=== PATIENT | female | born 1945 | race Caucasian/White ===

== ENCOUNTER 2021-08-10 13:26 | Emergency (ER) | payer MEDICARE, SELFPAY ==
[2021-08-10 15:21] VITALS: BP 180/90; PULSE 94; RESP 19; TEMP 36.1; O2SAT 98; BMI 23.8
[2021-08-10 15:36] VITALS: BP 156/97; PULSE 83; RESP 16; TEMP 37.1; O2SAT 98
--- NOTE | 2021-08-10 16:25 | ED_ITS ---
HPI - Eye Problem General Chief complaint: Eye Problems Stated complaint: Eye pain Time Seen by Provider: 08/10/21 15:33 Source: patient Mode of arrival: ambulatory Limitations: no limitations History of Present Illness HPI Narrative: 86-year-old female wear contacts presents to ED for left eye pain, redness, and slight discharge. Patient denies any recent trauma to the eye or sleeping with contacts. Patient states last night while sleeping she did rub her left eye and might have rubbed to hard. Patient denies any headache, change in vision, nausea, vomiting, loss of vision, facial droop, slurred streaks, or paralysis of extremities. Related Data Previous Rx's Medication Instructions Recorded naproxen 375 mg tablet,delayed 375 mg PO BID PRN 10 Days #20 tab 08/10/21 release ofloxacin 0.3 % eye drops See Rx Instructions .ROUTE 08/10/21 .COMPLEX #30 ml Allergies Allergy/AdvReac Type Severity Reaction Status Date / Time No Known Allergies Allergy Verified 08/10/21 15:31 Review of Systems Review of Systems: Left eye pain Yes all other systems are reviewed and are negative Constitutional: Constitutional: Reports as per HPI and Reports no additional constitutional complaints [facility] Past Medical History Medical History (Updated 08/10/21 @ 16:41 by DANIELA Arshad) HTN (hypertension) Social History Social History Advance Directives: No Advance Directives Information Provided: No Physical Exam Vital Signs: Vital Signs: Last Vital Signs Temp 98.7 F 08/10/21 15:36 Pulse 83 08/10/21 15:36 Resp 16 08/10/21 15:36 BP 156/97 H 08/10/21 15:36 Pulse Ox 98 08/10/21 15:36 BMI result Body Mass Index 23.8 Const: General: cooperative, healthy appearing, comfortable, no acute distress, well developed, alert, awake and Physically active Orientation/consciousness: patient oriented x3 HEENT: Head: Yes normal to inspection, Yes No palpable skull fracture present, Yes normocephalic, Yes atraumatic and No abrasion Eyes: Other: Left eye: Positive for rednes of conjunctiva and sclera and watery discharge. Negative for any foreign body. Tonometry pressure is 18. With fluorescein dye and Wood's lamp positive for corneal abrasion. Visual acuity 20/20 Right eye; normal. Negative for any foreign body. Tonometry eye pressure is 18. Negative corneal abrasion with fluorescein dye and Wood's lamp. Visual acuity 20/20 General: appearance normal, both eyes and all related structures Neck: Neck: Yes normal visual inspection, Yes full ROM, Yes no lymphadenopathy, Yes no meningeal signs, Yes trachea midline, Yes supple, No anterior neck swelling and No tender Chest: Chest palpation & inspection: normal inspection of the chest and normal palpation of entire chest wall Resp: Effort & Inspection: normal respiratory effort and able to speak in complete sentences Cardio: Jugular venous distension: no JVD Heart sounds: S1 normal heart sound present and S2 normal heart sound present GI: Inspection: Yes normal to inspection and No abdominal wall ecchymosis Palpation (GI): Soft to palpation, not firm, nontender, no guarding and not rigid : General: No CVA tenderness and Yes no CVA tenderness Back/Spine/Pelvis: Back: no CVA tenderness, No CVA tenderness and No back tenderness Skin: General skin exam: no rashes or lesions noted and elasticity normal Neuro: General: patient oriented x3, gait normal, tone normal, no meningeal signs and CN's II-XI intact bilaterally Cranial nerves: Yes CN's II-XII intact bilaterally Extrem: General: Yes normal to inspection and Yes full ROM Psych: Appearance: grossly normal, well kempt and not disheveled Course Course Course Narrative: Eye exam done. Reevaluation(s) Reevaluation #1: History physical exam indicates left eye corneal abrasion. History physical exam does not indicate glaucoma. Neuro exam intact. Negative for signs of stroke. No need for head CT scan. Not suspecting temporal arthritis. Patient will follow-up with her eye doctor. Patient uptodate with tetanus Time: 16:38 MDM - Eye Problem MDM Narrative Medical decision making narrative: Corneal abrasion Discharge Plan Discharge Clinical Impression: Corneal abrasion Patient Disposition: Home, Self-Care Instructions: Corneal Abrasion (ED) Additional Instructions: Your eye exam showed he had a corneal abrasion. You will be discharged with antibiotics and pain medications. Return to ED for any worsening eye pain, loss of vision, change in vision, worsening eye discharge, headache, dizziness, fever, chills, or any other concerning symptoms. Please follow-up with you eye doctor Prescriptions: New ofloxacin 0.3 % drops See Rx Instructions .ROUTE .COMPLEX Qty: 30 0RF Rx Instructions: put 1-2 drps into affected eye(s) every 2-4 h x 2 days, then 1-2 drps 4 times /day days 3-7 naproxen 375 mg tablet,delayed release (DR/EC) 375 mg PO BID PRN (Reason: pain) 10 Days Qty: 20 0RF Interventions: ED Discharge Assessment Last Done: 08/10/21 17:02 Discharge Date/Time: 08/10/21 17:04 Print Language: Sinhala
[2021-08-10] MEDS: Fluorescein Sodium STRIP 1 STRIP EYE-RIGHT (16:42)
[2021-08-10] MEDS: Fluorescein Sodium STRIP 1 STRIP EYE-LEFT (16:43)
[2021-08-10] MEDS: Tetracaine HCl/PF 0.5% Oph Sol 4 ML DROPS 3 DROP EYE-LEFT (16:46)
== END 2021-08-10 17:04 | disposition home or self-care (01) ==
PROVIDERS: Emergency Provider Emergency Medicine; PCP Internal Medicine
DX: S05.02XA Injury of conjunctiva and corneal abrasion without foreign body, left eye, initial encounter (principal); Y28.9XXA Contact with unspecified sharp object, undetermined intent, initial encounter; Y93.9 Activity, unspecified; Y92.9 Unspecified place or not applicable; Y99.9 Unspecified external cause status; Z79.899 Other long term (current) drug therapy
CPT/HCPCS: 99283; 99284

== ENCOUNTER 2023-07-06 15:36 | Outpatient (REF) | payer MEDICARE, SELFPAY ==
--- NOTE | ~2023-07-06 | CT_ITS ---
EXAMINATION: CT ABDOMEN AND PELVIS WITHOUT CONTRAST CLINICAL INFORMATION: Calculus of kidney. COMPARISON: None available. TECHNIQUE: Multidetector volumetric imaging was performed from the superior aspect of the liver through the pubic symphysis. Sagittal and coronal reformatted images were obtained on the technologist's workstation. This CT examination was performed using dose optimization techniques as appropriate, variously including the following: *Automated exposure control *Adjustment of mA and/or kV according to patient size (this includes techniques or standardized protocols for targeted exams where dose is matched to indication/reason for exam; i.e. extremities or head) *Use of iterative reconstruction technique DLP: 296 mGy-cm FINDINGS: LUNG BASES: Emphysematous changes are seen at the lung bases along with some scarring. LIVER, GALLBLADDER, AND BILIARY TREE: The liver is normal in size, shape, and attenuation. No focal hepatic lesion or biliary ductal dilatation is present. The gallbladder is unremarkable with no evidence of radiopaque gallstones, gallbladder wall thickening, or obvious pericholecystic inflammatory changes. PANCREAS: Unremarkable. SPLEEN: Unremarkable. ADRENAL GLANDS: Unremarkable. KIDNEYS AND URETERS: The kidneys are normal in size, shape, and attenuation. No hydronephrosis, hydroureter, or calculi seen. No perinephric stranding. BLADDER: Empty but unremarkable. GASTROINTESTINAL TRACT: The gastric fundus appears thickened, probably secondary to underdistention. The small and large bowel are unremarkable aside from the presence of colonic diverticula without diverticulitis. The appendix is unremarkable. ABDOMINAL WALL: No significant hernia is appreciated. LYMPH NODES: No retroperitoneal lymphadenopathy. VASCULAR: Calcific atherosclerotic changes are present in the aorta and iliofemoral vessels. There is no evidence of an abdominal aortic aneurysm. PELVIC VISCERA: Unremarkable. OSSEOUS STRUCTURES: There is a biconvex thoracolumbar scoliosis and degenerative change is seen throughout the spine. The most marked disc space narrowing is at L1-L2. There is mild grade 1 anterolisthesis of L5 upon S1. No bony destructive lesions. CT/CT abdomen pelvis wo IV con IMPRESSION: 1. No evidence of nephrolithiasis. 2. Incidental note made of emphysema, colonic diverticulosis without diverticulitis and degenerative changes in the spine. Fleischner guidelines were followed.
== END 2023-07-06 15:37 | disposition home or self-care (01) ==
LOC: HO.CT 15:36
PROVIDERS: PCP Physician Assistant; Visit Provider Urology
DX: N20.0 Calculus of kidney (principal)
CPT/HCPCS: 74176

== ENCOUNTER 2024-08-14 08:55 | Outpatient (REF) | payer MEDICARE, SELFPAY ==
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
[2024-08-14 11:23] LABS: MANUAL DIFF FLAG NO
[2024-08-14 11:32] LABS: Basophils Absolute Auto 0.1 X10*3/uL (0.0-0.2); Basophils Percent Auto 1.1 % (0-2); Eosinophils Absolute Auto 0.1 X10*3/uL (0.0-0.4); Eosinophils Percent Auto 1.5 % (0-4); Hematocrit 36.3 % (37.0-47.0); Hemoglobin 11.9 g/dl (12.0-16.0); Lymphocytes Absolute Auto 2.3 X10*3/uL (1.2-4.9); Lymphocytes Percent Auto 49.5 % (20-40); Mean Corpuscular HGB Conc 32.8 g/dl (31.0-35.0); Mean Corpuscular Hemoglobin 31.6 pg (27.0-33.0); Mean Corpuscular Volume 96.3 fL (80.0-98.0); Mean Platelet Volume 8.8 fL (9.4-12.3); Monocytes Absolute Auto 0.4 X10*3/uL (0.1-1.2); Monocytes Percent Auto 9.3 % (2-11); Neutrophils Absolute Auto 1.8 x10*3/uL (2.0-8.3); Neutrophils Percent Auto 38.6 % (45-73); Platelet Count 263 X10*3/uL (160-400); Red Blood Count 3.77 X10*6/uL (4.20-5.50); Red Cell Distribution Width 13.8 % (11.0-16.0); White Blood Count 4.7 X10*3/uL (4.8-10.8)
[2024-08-14 12:16] LABS: Folate 16.4 ng/mL (> or = 4.0); Vitamin B12 259 pg/mL (200-900)
[2024-08-14 12:23] LABS: Anion Gap 10 (12-20); Blood Urea Nitrogen 22 mg/dL (9-16); Calcium 9.1 mg/dL (8.4-10.2); Carbon Dioxide 29 mmol/L (22-29); Chloride 105 mmol/L (96-108); Estimated Glomerular Filt Rate > 60; Glucose Random 87 mg/dL (60-115); Potassium 4.3 mmol/L (3.3-5.1); Sodium 140 mmol/L (135-145); TSH reflex Free T4 1.18 uIU/mL (0.32-4.0); Vitamin D 25-OH Total 61.6 ng/mL (>30)
== END 2024-08-14 08:56 | disposition home or self-care (01) ==
LOC: HO.HHCL 08:55
PROVIDERS: Visit Provider Internal Medicine
DX: I10 Essential (primary) hypertension (principal); M17.31 Unilateral post-traumatic osteoarthritis, right knee; M15.4 Erosive (osteo)arthritis
CPT/HCPCS: 36415; 80048; 82306; 82607; 82746; 84443; 85025

== ENCOUNTER 2024-08-15 11:05 | Outpatient (REF) | payer MEDICARE, SELFPAY ==
--- OUTSIDE RECORDS SUMMARY | 2024-08-15 12:10 | XMS_ITS | Encounter Summary ---
Author Organization [employer] Address [address] [place] [address] Care Team Providers Care Higher Education Administrator Name Role Phone Page Gudino MD Primary Care Provider + Encounter Details Date Type Department Care Team ([facility] Contact Info) Description 08/14/2024 Orders Only [facility] [address] [place] [address] Page Gudino MD [address] [place] [phone] Anemia, unspecified type (Primary Dx) Social History Tobacco Use Types Packs/Day Years [...] Don't know 04/04/2024 8: 18 AM EST documented as of this encounter Plan of Treatment Upcoming Encounters Date Type Department Care Team (Late st Contact Info) Description 09/15/2024 9:45 AM EDT Office Visit [facility] [address] [place] [phone] Page Gudino MD [address] [place] [address] Scheduled Orders Name Type Priority Associated Diagnoses Orde r Schedule Ferritin Lab Routine Anemia, unspecified type Expected: 08/14/2024, Expires: 08/14/2025 Transferrin Lab Routine Anemia, unspecified type Expected: 08/14/2024 (Approximate), Expires: 08/14/2025 CBC auto differential Lab Routine Anemia, unspecified type Expected: 08/14/2024 (Approximate), Expires: 08/14/2025 Reticulocyte Count Lab Routine Anemia, unspecified type Expected: 08/14/2024, Expires: 08/14/2025 Occult Blood Screen X 3 Lab Routine Anemia, unspecified type Expected: 08/14/2024 (Approximate), Expires: 08/14/2025 Iron And Total Iron Binding Capacity Lab Routine Anemia, unspecified type Expected: 08/14/2024, Expires: 08/14/2025 documented as of this encounter Visit Diagnoses Diagnosis Anemia, unspecified type- Primary documented in this encounter Care Teams Higher Education Administrator Relationship Specialty Start Date End Date Page Gudino MD [address] [place] [id number] PCP - General Internal Medicine 07/31/24 documented as of this encounter
--- OUTSIDE RECORDS SUMMARY | 2024-08-15 12:10 | XMS_ITS | Clinical Summary ---
Author Organization [employer] Address [address] [facility] 7t [place] [address] Care Team Providers Care Heavy Equipment Plumbing Supervisor Name Role Phone Page Gudino MD Primary [...] Encounters Date Type Department Care Team Description 08/14/2024 Telephone [facility] [address] [place] [address] Page Gudino MD Results 08/14/2024 Orders Only [facility] [address] [place] [address] Page Gudino MD Anemia, unspecified type (Primary Dx) 07/31/2024 9:15 AM EDT Office Visit [address] [place] [phone] Page Gudino MD Erosive osteoarthritis of both hands (Primary Dx); Primary hypertension; Tremor of both hands; Post-traumatic osteoarthritis of right knee; Screening mammogram, encounter for; At high risk for osteoporosis 07/31/[address] [address] Page Gudino MD insurance 07/31/2024 Travel 07/29/[address] [address] Maye Hollis [place] Chart prep 07/22/2024 Patient Outreach [address] [phone] Page Gudino MD Pre-visit Planning ((Unable to [...] Description 09/15/2024 9:45 AM EDT Office Visit [facility] [address] [place] [address] Page Gudino MD [address] [place] [address] Health Maintenance Due Date Last Done Comments [...] on patient's age to complete this topic Procedures Procedure Name Priority Date/Time Associated Diagnosis Comments VITAMIN B12/FOLATE, SERUM PANEL Routine 08/14/2024 8:58 AM EDT Erosive osteoarthritis of both hands BASIC METABOLIC PANEL Routine 08/14/2024 8:58 AM EDT Primary hypertension CBC WITH AUTO DIFFERENTIAL Routine 08/14/2024 8:58 AM EDT Erosive osteoarthritis of both hands TSH W/REFLEX TO FT4 Routine 08/14/2024 8 :58 AM EDT Post-traumatic osteoarthritis of right knee VITAMIN D,25-OH,TOTAL,IA Routine 08/14/2024 8:58 AM EDT Erosive osteoarthritis of both hands from Last 3 Months Results * Vitamin D, 25-Hydroxy, Total, Immunoassay (08/14/2024 8:58 AM EDT) Vitamin D 25-OH Total 61.6 >30 ng/mL [facility] Comment: Health Based Reference Values*< 20 ??ng/mL ??Lxvvfmjaf80-59 ng/mL ??Insufficient> 30 ??ng/mL ??Sufficient*Lenny REYEZ. N Engl J Med. 2007;357:266-280There is no well-established upper level of normal vitamin Dlevels. Some laboratories use 50 ng/mL as an upper limit ofnormal. However, toxicity is patient-dependent and may occurat any level. Careful correlation with the patient'spresentation is necessary and, if there is concern forvitamin D toxicity, treatment should be consideredirrespective of the serum level.Care must be taken in interpreting Vitamin D results fromdifferent laboratories and methodologies. ??Published datademonstrated that results from patients undergoinghemodialysis may show a negative bias when tested withvarious automated 25-OH vitamin D assays when compared toLC- MS/MS.When testing samples from patients whose predominant form ofVitamin D is Vitamin D2, such as patients receiving VitaminD2 supplementation, results that are subtherapeutic shouldbe confirmed with another method such as LC-MS/MS. Blood 08/14/2024 8:58 AM EDT 08/14/2024 11:19 AM EDT us Page Gudino MD LAB BLOOD ORDERABLES Fin al Result [facility] [address] [place] [phone] * Vitamin B12/Folate, Serum Panel (08/14/2024 8:58 AM EDT) Vitamin B12 259 200 - 900 pg/mL [facility] Comment:NORMAL 200-900 PG/ML INDETERMINATE 160-199 PG/ML DEFICIENT < 160 PG/ML Folate 16.4 > or = 4.0 ng/mL [facility] Comment:Reference Values:> o r = 4.0 ng/mL< 4.0 ng/mL suggests folate deficiency Methotrexate, aminopterin and folinic acid(leucovorin) are chemotherapeutic agents whose molecularstructures are similar to folate; therefore, the Architectfolate assay cannot be used for patients using these drugs. Blood Venous blood specimen / Unknown 08/14/2024 8:58 AM EDT 08/14/2024 11:19 AM EDT Page Gudino MD LAB BLOOD ORDERABLES Fin al Result Performing Organization Address [facility]/ZIP Co de Phone Number [facility] [address] [place] [phone] * TSH with Reflex to Free T4 (08/14/2024 8:58 AM EDT) TSH reflex Free T4 1.18 0.32 - 4.0 uIU/mL [facility] Blood 08/14/2024 8:58 AM EDT 08/14/2024 11:19 AM EDT Pgae Gudino MD LAB BLOOD ORDERABLES Fin al Result Performing Organization Address [facility] Co de Phone Number [facility] [address] [place] [phone] * (ABNORMAL) CBC auto differential (08/14/2024 8:58 AM EDT) White Blood Count 4.7(L) 4.8 - 10.8 X10*3/uL [facility] Red Blood Count 3.77(L) 4.20 - 5.50 X10*6/uL [facility] Hemoglobin 11.9(L) 12.0 - 16.0 g/dl [facility] Hematocrit 36.3(L) 37.0 - 47.0 % [facility] Mean Corpuscular Volume 96.3 80.0 - 98.0 fL [facility] Mean Corpuscular Hemoglobin 31.6 27.0 - 33.0 pg [facility] Mean Corpuscular HGB Conc 32.8 31.0 - 35.0 g/dl [facility] Red Cell Distribution Width 13.8 11.0 - 16.0 % [facility] Platelet Count 263 160 - 400 X10*3/uL [facility] Mean Platelet Volume 8.8(L) 9.4 - 12.3 fL [facility] Neutrophils Percent Auto 38.6(L) 45 - 73 % [facility] Imm Gran Pct Auto 0.0 0.0 - 0.4 % [facility] Lymphocytes Percent Auto 49.5(H) 20 - 40 % [facility] Monocytes Percent Auto 9.3 2 - 11 % [facility] Eosinophils Percent Auto 1.5 0 - 4 % [facility] Basophils Percent Auto 1.1 0 - 2 % [facility] NRBC Pct Auto 0.0 0.0 - 0.2 /100WBC [facility] Neutrophils Absolute Auto 1.8(L) 2.0 - 8.3 x10*3/uL [facility] Imm Gran Abs Auto 0.00 0.00 - 0.03 X10*3/uL [facility] Lymphocytes Absolute Auto 2.3 1.2 - 4.9 X10*3/uL [facility] Monocytes Absolute Auto 0.4 0.1 - 1.2 X10*3/uL [facility] Eosinophils Absolute Auto 0.1 0.0 - 0.4 X10*3/uL [facility] Basophils Absolute Auto 0.1 0.0 - 0.2 X10*3/uL [facility] NRBC Abs Auto 0.000 0.0 - 0.012 X10*3/uL [facility] Blood Venous blood specimen / Unknown 08/14/2024 8:58 AM EDT 08/14/2024 11:19 AM EDT us Page Gudino MD LAB BLOOD ORDERABLES Fin al Result [facility] [address] [place] [phone] * (ABNORMAL) Basic Metabolic Panel (08/14/2024 8:58 AM EDT) Sodium 140 135 - 145 mmol/L [facility] Potassium 4.3 3.3 - 5.1 mmol/L [facility] Chloride 105 96 - 108 mmol/L [facility] Carbon Dioxide 29 22 - 29 mmol/L [facility] Anion Gap 10(L) 12 - 20 [facility] Urea Nitrogen (BUN) 22(H) 9 - 16 mg/dL [facility] Creatinine, Serum 0.69 0.5 - 1.4 mg/dL [facility] Estimated Glomerular Filt Rate >60 [facility] Comment:Chronic Kidney Disea se: Estimated GFR < 60 mL/min/[id number] Kidney Disease: Estimated GFR < 15 mL/min/1.73m2 Glucose 87 60 - 115 mg/dL [facility] Calcium 9.1 8.4 - 10.2 mg/dL [facility] Blood Venous blood specimen / Unknown 08/14/2024 8:58 AM EDT 08/14/2024 11:19 AM EDT us Page Gudino MD LAB BLOOD ORDERABLES Fin al Result Performing Organization Address City/State/[facility] Co de Phone Number [facility] [address] [place] [phone] from Last 3 Months Insurance [facility] MEDICARE ADVANTAGE Care Teams Heavy Equipment Plumbing Supervisor Relationship Specialty Start Date End Date Page Gudino MD [address] [place] [phone] PCP - General Internal Medicine 07/31/24
--- OUTSIDE RECORDS SUMMARY | 2024-08-15 12:10 | XMS_ITS | Encounter Summary ---
Author Organization [employer] Address [address] [facility] 7t [place] [address] Care Team Providers Care Media Analytics Manager Name Role Phone Page Gudino MD Primary Care Provider + Reason for Visit * Reason Onset Date Comments Results 08/14/2024 Encounter Details Date Type Department Care Team ([facility] Contact Info) Description 08/14/2024 Telephone [facility] [address] [place] [address] Page Gudino MD [address] [place] [address] Results Social History Tobacco Use Types Packs/Day Years Used Date Smoking Tobacco: Never Smokeless Tobacco: Never Alcohol Use Standard Drinks/Week Comments Yes 6 (1 standard drink = 0.6 oz pur e alcohol) Housing Stability Answer Date Recorded What is your housing situation today? I have kamronjose odom 03/24/[address] you [...] t he electric, gas, oil or water [employer] threatened to shut off services in your [...] AM EST documented as of this encounter Miscellaneous Notes * Telephone Encounter - Elise Bajwa RN - 08/15/2024 10:07 AM EDT TC x2 placed to patient [phone] in regards to below message. Patient informed of below messageand advised of POC. Patient aware she will receive another call with additional BW results once available. Patient reports she has NOT had a colonoscopy in the past. Patient to f/u PRN. ----- Message from Page Gudino MD sent at 08/14/2024 2:35 PM EDT ----- Labs on 08/14/2024 showed mild normocytic anemia and leukopenia. Please call patient and tell her that I would like to do extra test to check for her anemia, it is very mild so that she does not need medications for anemia at this time. Please also ask her if she has ever had colonoscopy and I will follow-up with her at her upcoming appointment * Telephone Encounter - Elise Bajwa RN - 08/14/2024 2:52 PM EDT TC placed to patient [phone] in regards to below message. Patient did not answer, RN left requesting CB to red team nurses. TC placed to [phone] however busy tone is received. RN unable to leave . RN will re-attempt in AM. ----- Message from Page Gudino MD sent at 08/14/2024 2:35 PM EDT ----- Labs on 08/14/2024 showed mild normocytic anemia and leukopenia. Please call patient and tell her that I would like to do extra test to check for her anemia, it is very mild so that she does not need medications for anemia at this time. Please also ask her if she has ever had colonoscopy and I will follow-up with her at her upcoming appointment documented in this encounter Plan of Treatment Upcoming Encounters Date Type Department Care Team (Late st Contact Info) Description 09/15/2024 9:45 AM EDT Office Visit [facility] [address] [place] [phone] Page Gudino MD [address] [place] [phone] documented as of this encounter Visit Diagnoses Not on filedocumented in this encounter Care Teams Media Analytics Manager Relationship Specialty Start Date End Date Page Gudino MD [address] [place] [phone] PCP - General Internal Medicine 07/31/24 documented as of this encounter
== END 2024-08-15 11:06 | disposition home or self-care (01) ==
LOC: HO.MAMMO 11:05
PROVIDERS: PCP Internal Medicine; Visit Provider Internal Medicine
DX: Z12.31 Encounter for screening mammogram for malignant neoplasm of breast (principal)
CPT/HCPCS: 77063; 77067

== ENCOUNTER → 2024-08-15 11:30 | Outpatient (BNV) | payer MEDICARE, SELFPAY | PROVIDERS: PCP Internal Medicine; Visit Provider Internal Medicine | DX: Z12.31 Encounter for screening mammogram for malignant neoplasm of breast (principal) | CPT/HCPCS: 77063; 77067 ==

== ENCOUNTER 2024-08-21 09:21 | Outpatient (REF) | payer MEDICARE, SELFPAY ==
--- OUTSIDE RECORDS SUMMARY | 2024-08-21 10:15 | XMS_ITS | Clinical Summary ---
Author Organization [employer] Address [address] [facility] 7t [place] [address] Care Team Providers Care Systems Auditor Name Role Phone Page Gudino MD Primary [...] Type Department Care Team Description 08/14/2024 Telephone [facility] [address] [place] [address] Page Gudino MD Results 08/14/2024 Orders Only [facility] [address] [facility] [address] Page Gudino MD Anemia, unspecified type (Primary Dx) 07/31/2024 9:15 AM EDT Office Visit [address] [place] [phone] Page Gudino MD Erosive osteoarthritis of both hands (Primary Dx); Primary hypertension; Tremor of both hands; Post-traumatic osteoarthritis of right knee; Screening mammogram, encounter for; At high risk for osteoporosis 07/31/[address] [address] Page Gudino MD insurance 07/31/2024 Travel 07/29/[address] [address] Maye Hollis [place] Chart prep 07/22/2024 Patient Outreach [address] [phone] Page Gudino MD Pre-visit Planning ((Unable to [...] Description 09/15/2024 9:45 AM EDT Office Visit [facility] [address] [place] [address] Page Gudino MD [address] [place] [address] Health Maintenance Due Date Last Done Comments [...] Vitamin D 25-OH Total 61.6 >30 ng/mL [facility] Comment: Health Based Reference Values*< 20 ??ng/mL ??Fkdgudijl93-27 ng/mL ??Insufficient> 30 ??ng/mL ??Sufficient*Lenny REYEZ. N [...] MD LAB BLOOD ORDERABLES Fin al Result [facility] [address] [place] [phone] * Vitamin B12/Folate, Serum Panel (08/14/2024 8:58 AM EDT) Vitamin B12 259 200 - 900 pg/mL [facility] Comment:NORMAL 200-900 PG/ML INDETERMINATE 160-199 PG/ML DEFICIENT < 160 PG/ML Folate 16.4 > or = 4.0 ng/mL [facility] Comment:Reference Values:> o r = 4.0 [...] ORDERABLES Fin al Result Performing Organization Address [facility]/ZIP Co de Phone Number [facility] [address] [place] [phone] * TSH with Reflex to Free T4 (08/14/2024 8:58 AM EDT) TSH reflex Free T4 1.18 0.32 - 4.0 uIU/mL [facility] Blood 08/14/2024 8:58 AM EDT 08/14/2024 11:19 AM EDT Page Gudino MD LAB BLOOD ORDERABLES Fin al Result Performing Organization Address [facility] Co de Phone Number [facility] [address] [place] [phone] * (ABNORMAL) CBC auto differential (08/14/2024 8:58 AM EDT) White Blood Count 4.7(L) 4.8 - 10.8 X10*3/uL [facility] Red Blood Count 3.77(L) 4.20 - 5.50 X10*6/uL [facility] Hemoglobin 11.9(L) 12.0 - 16.0 g/dl [facility] Hematocrit 36.3(L) 37.0 - 47.0 % [facility] Mean Corpuscular Volume 96.3 80.0 - 98.0 fL [facility] Mean Corpuscular Hemoglobin 31.6 27.0 - 33.0 pg [facility] Mean Corpuscular HGB Conc 32.8 31.0 - 35.0 g/dl [facility] Red Cell Distribution Width 13.8 11.0 - 16.0 % [facility] Platelet Count 263 160 - 400 X10*3/uL [facility] Mean Platelet Volume 8.8(L) 9.4 - 12.3 fL [facility] Neutrophils Percent Auto 38.6(L) 45 - 73 % [facility] Imm Gran Pct Auto 0.0 0.0 - 0.4 % [facility] Lymphocytes Percent Auto 49.5(H) 20 - 40 % [facility] Monocytes Percent Auto 9.3 2 - 11 % [facility] Eosinophils Percent Auto 1.5 0 - 4 % [facility] Basophils Percent Auto 1.1 0 - 2 % [facility] NRBC Pct Auto 0.0 0.0 - 0.2 /100WBC [facility] Neutrophils Absolute Auto 1.8(L) 2.0 - 8.3 x10*3/uL [facility] Imm Gran Abs Auto 0.00 0.00 - 0.03 X10*3/uL [facility] Lymphocytes Absolute Auto 2.3 1.2 - 4.9 X10*3/uL [facility] Monocytes Absolute Auto 0.4 0.1 - 1.2 X10*3/uL [facility] Eosinophils Absolute Auto 0.1 0.0 - 0.4 X10*3/uL [facility] Basophils Absolute Auto 0.1 0.0 - 0.2 X10*3/uL [facility] NRBC Abs Auto 0.000 0.0 - 0.012 X10*3/uL [facility] Blood Venous blood specimen / Unknown 08/14/2024 8:58 AM EDT 08/14/2024 11:19 AM EDT us Page Gudino MD LAB BLOOD ORDERABLES Fin al Result [facility] [address] [place] [phone] * (ABNORMAL) Basic Metabolic Panel (08/14/2024 8:58 AM EDT) Sodium 140 135 - 145 mmol/L [facility] Potassium 4.3 3.3 - 5.1 mmol/L [facility] Chloride 105 96 - 108 mmol/L [facility] Carbon Dioxide 29 22 - 29 mmol/L [facility] Anion Gap 10(L) 12 - 20 [facility] Urea Nitrogen (BUN) 22(H) 9 - 16 mg/dL [facility] Creatinine, Serum 0.69 0.5 - 1.4 mg/dL [facility] Estimated Glomerular Filt Rate >60 [facility] Comment:Chronic Kidney Disea se: Estimated GFR < 60 mL/min/1.89e4Smyncu Kidney Disease: Estimated GFR < 15 mL/min/1.73m2 Glucose 87 60 - 115 mg/dL [facility] Calcium 9.1 8.4 - 10.2 mg/dL [facility] Blood Venous blood specimen / Unknown 08/14/2024 8:58 AM EDT 08/14/2024 11:19 AM EDT us Page Gudino MD LAB BLOOD ORDERABLES Fin al Result Performing Organization Address City/State/[facility] Co de Phone Number [facility] [address] [place] [address] [phone] from Last 3 Months Insurance [facility] MEDICARE ADVANTAGE Care Teams Systems Auditor Relationship Specialty Start Date End Date Page Gudino MD [address] [place] [phone] PCP - General Internal Medicine 07/31/24
[2024-08-21 11:17] LABS: MANUAL DIFF FLAG NO
[2024-08-21 11:31] LABS: Basophils Absolute Auto 0.1 X10*3/uL (0.0-0.2); Basophils Percent Auto 1.1 % (0-2); Eosinophils Absolute Auto 0.1 X10*3/uL (0.0-0.4); Eosinophils Percent Auto 1.9 % (0-4); Hematocrit 35.1 % (37.0-47.0); Hemoglobin 11.5 g/dl (12.0-16.0); Imm Gran Abs Auto 0.01 X10*3/uL (0.00-0.03); Imm Gran Pct Auto 0.2 % (0.0-0.4); Immature Retic Fraction 9.5 % (3.0-15.9); Lymphocytes Absolute Auto 1.9 X10*3/uL (1.2-4.9); Lymphocytes Percent Auto 35.9 % (20-40); Mean Corpuscular HGB Conc 32.8 g/dl (31.0-35.0); Mean Corpuscular Hemoglobin 31.7 pg (27.0-33.0); Mean Corpuscular Volume 96.7 fL (80.0-98.0); Mean Platelet Volume 8.7 fL (9.4-12.3); Monocytes Absolute Auto 0.5 X10*3/uL (0.1-1.2); Monocytes Percent Auto 8.9 % (2-11); Neutrophils Absolute Auto 2.7 x10*3/uL (2.0-8.3); Platelet Count 290 X10*3/uL (160-400); Red Blood Count 3.63 X10*6/uL (4.20-5.50); Red Cell Distribution Width 14.1 % (11.0-16.0); Reticulocyte Percent 1.1 % (0.5-1.8); White Blood Count 5.3 X10*3/uL (4.8-10.8)
[2024-08-21 11:52] LABS: Iron 86 mcg/dL (30-160); Percent Iron Saturation 37 % (15-50); Total Iron Binding Capacity 234 mcg/dL (228-428); Unsaturated Iron Binding 148 ug/dL
[2024-08-21 12:01] LABS: Ferritin 123 ng/mL (10-250)
[2024-08-22 03:53] LABS: Transferrin 204 mg/dL (188-341)
== END 2024-08-21 09:22 | disposition home or self-care (01) ==
LOC: HO.HHCL 09:21
PROVIDERS: Visit Provider Internal Medicine
DX: D64.9 Anemia, unspecified (principal)
CPT/HCPCS: 36415; 82728; 83540; 84466; 85025; 85045

== ENCOUNTER 2024-10-21 13:11 | Outpatient (REF) | payer MEDICARE, SELFPAY ==
--- NOTE | ~2024-10-21 | MM_ITS ---
EXAMINATION: DXA BONE DENSITY AXIAL HISTORY: Z91.89 TECHNIQUE: [employer] Dual energy absorptiometry (DEXA) of the lumbar spine, total left hip, and femoral neck was performed. COMPARISON: There are no prior studies for comparison. FINDINGS: The bone mineral density of the lumbar spine is 1.003, corresponding to a T-score of -1.5, and a Z-score of 0.6. This is indicative of osteopenia. The bone mineral density of the left total hip is 0.743, corresponding to a T-score of -2.1, and a Z-score of 0.0. This is indicative of osteopenia. The bone mineral density of the left femoral neck is 0.716, corresponding to a T-score of -2.3, and a Z-score of -0.1. This is indicative of osteopenia. FRACTURE RISK: The FRAX index suggests a risk of major osteoporotic fracture of 39.9%, and of hip fracture 26.5%. MM/XR DEXA axial skeleton IMPRESSION: Based on bone mineral density, and according to World Health Organization (WHO) criteria, the diagnosis is consistent with osteopenia. All bone density values are in grams per centimeter squared (g/cm2). Statistically, 68% of repeat scans fall within 1 SD (+/- 0.010 g/cm2 for AP spine L1-L4) and 1 SD (+/- 0.012 g/cm2 for femur total) FRAX is a trademark of the [employer] [place] [facility], a World Health Organization (WHO) Collaborating Center. Electronically signed by: Zackary Rausch MD 10/21/2024 01:46 PM EDT
--- OUTSIDE RECORDS SUMMARY | 2024-10-21 15:05 | XMS_ITS | Clinical Summary ---
Author Organization [employer] Address [address] [facility] [address] [place] [address] Care Team Providers Care Electrical Drafter Name Role Phone Keshawn Gudino MD Primary Care Provider + Allergies [...] Active Problems Problem Noted Date Diagnosed Date Skin tag 09/15/2024 Assessment & Plan (09/15/2024 9:52 AM EDT): On the right nasolabial fold, will refer for resection. Acquired hypothyroidism 09/15/2024 Assessment & Plan (09/15/2024 9:54 AM EDT): TSH is at goal, continue levothyroxine 100 mg/day, follow-up TSH in 6 to 8 months Anemia 09/15/2024 Assessment & Plan (09/15/2024 9:55 AM EDT): Unclear if iron deficiency as patient was taking iron supplementation until recently. Advised her to restart iron x 3 months and follow-up CBC at next appointment then DC and observe I gave her information regarding colorectal cancer screening, she would like to defer colonoscopy so she will call me back when she is ready to have Cologuard ordered We discussed that he may be also related to history of positive RF serology/inactive disease or hypothyroidism, in any case we will follow-up CBC Screening mammogram, encounter for 07/31/2024 Primary hypertension 07/31/2024 Assessment & Plan (09/15/2024 9:53 AM EDT): Controlled. Compliant w/meds Continue lisinopril same dose Counseled re low salt diet/increase moderate physical activity. Check home BP BIW and prn CP/CHIRINOS/RAUSCH Non smoking patient. Follow-up in 4 to 6 months Assessment & Plan (07/31/2024 10:20 AM EDT): [...] risk for osteoporosis 07/31/2024 Assessment & Plan (09/15/2024 9:52 AM EDT): Status post fracture, she is on calcium + D and vitamin D levels are normal. Order BMD test. We discussed about risk of falls, advised to walk with a cane due to history of OA on her right knee. Assessment & Plan (07/31/2024 10:23 AM EDT): History of previous fracture We discussed regarding prevention of falls, will order BMD test at future visit Erosive osteoarthritis of both hands 01/09/2024 Overview (07/31/2024): Plain film right hand 06/2023 No personal or family h/o psoriasis; no significant diarrhea hx Assessment & Plan (07/31/2024 10:21 AM EDT): Low KESHAWN and RF titers , seen by rheum [...] needed Will order bone density test Positive KESHAWN (antinuclear antibody) 01/09/2024 Overview (07/31/2024): 1:5120 centromere 07/2023 No Raynaud's, sclerodactyly, reflux, dysphagia, or dyspnea Anti-mitochondrial Ab neg 12/2023 Encounters Date Type Department Care Team Description 09/15/2024 9:45 AM EDT Office Visit [facility] [address] [place] [phone] Keshawn Gudino MD Primary hypertension (Primary Dx); Anemia, unspecified type; At high risk for osteoporosis; Skin tag; Acquired hypothyroidism; Encounter for immunization 09/15/2024 Travel 09/14/2024 Travel 09/12/2024 Telephone [facility] [address] [place] [address] [phone] Keshawn Gudino MD Chart prep 08/14/2024 Telephone [facility] [address] [place] [address] [phone] Keshawn Gudino MD Results 08/14/2024 Orders Only [facility] [address] [place] [phone] Keshawn Gudino MD Anemia, unspecified type (Primary Dx) 07/31/2024 9:15 AM EDT Office Visit [address] [address] Keshawn Gudino MD Erosive osteoarthritis of both hands (Primary Dx); Primary hypertension; Tremor of both hands; Post-traumatic osteoarthritis of right knee; Screening mammogram, encounter for; At high risk for osteoporosis 07/31/[address] [phone] Keshawn Gudino MD insurance 07/31/2024 Travel 07/29/[address] [phone] Maye Hollis [place] Chart prep 07/22/2024 Patient Outreach [address] [address] Keshawn Gudino MD Pre-visit Planning ((Unable to reach for PVP screening, LVM)) from Last 3 Months Immunizations Immunization Administration Dates Next Due Influenza High-dose Quadrivalent Preservative Fr ee 02/06/2022 Influenza Quadrivalent Adjuvanted 01/26/2023,07/2019 Influenza, High Dose Seasonal, Preservative Free 02/01/2018 Moderna Covid-19 Vaccine 12+ 09/13/2021 Pneumococcal Conjugate PCV 13 02/03/2019 Pneumococcal Conjugate PCV 20 09/15/2024 Tdap 09/15/2024 Zoster, Recombinant 11/14/2022,08/15/2022 Social History Tobacco Use Types Packs/Day Years Used Date Smoking Tobacco: Never Smokeless Tobacco: Never Tobacco Cessation:Counseling Given: Not Answered Alcohol Use Standard Drinks/Week Comments Yes 6 [...] Sign Reading Time Taken Comments Blood Pressure 135/76 09/15/2024 9:33 AM EDT Pulse 102 09/15/2024 9:33 AM EDT Temperature 36.1 C (96.9 F) 09/15/2024 9:33 AM EDT Respiratory Rate - - Oxygen Saturation 100% 09/15/2024 9:33 AM EDT Inhaled Oxygen Concentration - - Weight 55.8 kg (123 lb) 09/15/2024 9:33 AM EDT Height 157.5 cm (5' 2 ) 09/15/2024 9:33 AM EDT Body Mass Index 22.5 09/15/2024 9:33 AM EDT Plan of Treatment Health Maintenance Due Date Last Done Comments Depression Screening 1945 Lipid Panel 1945 Alcohol/Substance Use Screening 1959 Hepatitis C Screening 1965 RSV Patients and Patients Aged 60 years or older (1 - 1-dose 75+ series) 2022 COVID-19 Vaccine ( season) 2023 03/21/2022, 09/13/2021, 03/09/2021, Additional history exists Influenza Vaccine (Season Ended) 2024 01/26/2023, 02/06/2022, 02/01/2020, Additional history exists SDOH Screening 03/24/2025 03/24/2024 Tobacco Screening 09/15/2025 09/15/2024 DTaP/Tdap/Td Vaccines (2 - Td or Tdap) 09/15/2034 09/15/2024 Zoster Vaccines Completed 11/14/2022, 08/15/2022 Pneumococcal Vaccine: 50+ Years Completed 09/15/2024, 02/03/2019 HIB Vaccines Aged Out No longer eligi [...] patient's age to complete this topic Meningococcal B Vaccine Aged Out No l onger eligible based on patient's age to complete [...] Procedure Name Priority Date/Time Associated Diagnosis Comments BD DEXA AXIAL Routine 10/21/2024 1:20 PM EDT At high risk for osteoporosis IRON AND TOTAL IRON BINDING CAPACITY Routine 08/21/2024 9:26 AM EDT Anemia, unspecified type RETICULOCYTE COUNT Routine 08/21/2024 9: 26 AM EDT Anemia, unspecified type CBC WITH AUTO DIFFERENTIAL Routine 08/21/2024 9:26 AM EDT Anemia, unspecified type TRANSFERRIN Routine 08/21/2024 9:26 AM EDT Anemia, unspecified type FERRITIN Routine 08/21/2024 9:26 AM EDT Anemia, unspecified type BI MAMMOGRAM SCREENING TOMOSYNTHESIS BILATERAL Routine 08/15/2024 11:10 AM EDT Screening mammogram, encounter for VITAMIN B12/FOLATE, SERUM PANEL Routine 08/14/2024 8:58 [...] hands from Last 3 Months Results * BD DEXA Axial (10/21/2024 1:20 PM EDT) Anatomical Region Laterality Modality Body Radiographic Catia ging 10/21/2024 1:20 PM EDT Narrative 10/21/2024 1:49 PM EDT [facility] [place] [address] Mammography Report Signed Patient: Trina Perez MR#: [id number] 2 : 1945 Acct:[id number] Age/Sex: 79 / F ADM Date: 10/21/24 Loc: .MAMMO Attending Dr: Keshawn Gudino MD Ordering Physician: Keshawn Gudino MD Results: Date of Service: 10/21/24 Follow Up: Procedure(s): XR DEXA axial skeleton Accession Number(s): [id number] cc: Keshawn Gudino MD EXAMINATION: DXA BONE DENSITY AXIAL HISTORY: Z91.89 TECHNIQUE: [employer] Dual energy absorptiometry (DEXA) of the lumbar spine, total left hip, and femoral neck was performed. COMPARISON: There are no prior studies for comparison. FINDINGS: The bone mineral density of the lumbar spine is 1.003, corresponding to a T-score of -1.5, and a Z-score of 0.6. This is indicative of osteopenia. The bone mineral density of the left total hip is 0.743, corresponding to a T-score of -2.1, and a Z-score of 0.0. This is indicative of osteopenia. The bone mineral density of the left femoral neck is 0.716, corresponding to a T-score of -2.3, and a Z-score of -0.1. This is indicative of osteopenia. FRACTURE RISK: The FRAX index suggests a risk of major osteoporotic fracture of 39.9%, and of hip fracture 26.5%. MM/XR DEXA axial skeleton IMPRESSION: Based on bone mineral density, and according to World Health Organization (WHO) criteria, the diagnosis is consistent with osteopenia. All bone density values are in grams per centimeter squared (g/cm2). Statistically, 68% of repeat scans fall within 1 SD (+/- 0.010 g/cm2 for AP spine L1-L4) and 1 SD (+/- 0.012 g/cm2 for femur total) FRAX is a trademark of the [employer] [place] for Metabolic Bone Disease, a World Health Organization (WHO) Collaborating Center. Electronically signed by: Zackary Rausch MD 10/21/2024 01:46 PM EDT Dictated By: Zackary Rausch MD Signed By: <Electronically signed by Zackary Rausch MD in OV> 10/21/24 1346 DD/ 1320 TD/TT: 10/21/24 1340 Certified Master Safecracker: Procedure Note Donotuseinterpreter, Image - 10/21/2024 [place] [facility] [address] [place], [place] [address] Mammography Report Signed Patient: Charli Perez#: [id number] 2 : 8Acct:[id number] Age/Sex: 79 / FADM Date: 10/21/24 Loc: [facility] Attending Dr: Keshawn Gudino MD Ordering Physician: Terese,Maritza. MDResults: Date of Service: 10/21/24Follow Up: Procedure(s): XR DEXA axial skeleton Accession Number(s): [id number] cc: Keshawn Gudino MD EXAMINATION: DXA BONE DENSITY AXIAL HISTORY: Z91.89 TECHNIQUE: [employer] Dual energy absorptiometry (DEXA) of the lumbar spine, total left hip, and femoral neck was performed. COMPARISON: There are no prior studies for comparison. FINDINGS: The bone mineral density of the lumbar spine is 1.003, corresponding to a T-score of -1.5, and a Z-score of 0.6. This is indicative of osteopenia. The bone mineral density of the left total hip is 0.743, corresponding to a T-score of -2.1, and a Z-score of 0.0. This is indicative of osteopenia. The bone mineral density of the left femoral neck is 0.716, corresponding to a T-score of -2.3, and a Z-score of -0.1. This is indicative of osteopenia. FRACTURE RISK: The FRAX index suggests a risk of major osteoporotic fracture of 39.9%, and of hip fracture 26.5%. MM/XR DEXA axial skeleton IMPRESSION: Based on bone mineral density, and according to World Health Organization (WHO) criteria, the diagnosis is consistent with osteopenia. All bone density values are in grams per centimeter squared (g/cm2). Statistically, 68% of repeat scans fall within 1 SD (+/- 0.010 g/cm2 for AP spine L1-L4) and 1 SD (+/- 0.012 g/cm2 for femur total) FRAX is a trademark of the [employer] [place] for Metabolic Bone Disease, a World Health Organization (WHO) Collaborating Center. Electronically signed by: Zackary Rausch MD 10/21/2024 01:46 PM EDT Dictated By: Zackary Rausch MD Signed By: <Electronically signed by Zackary Rausch MD in OV> 10/21/24 1346 DD/ 1320 TD/TT: 10/21/24 1340 Certified Master Safecracker: Keshawn Gudino MD IM DXA PROCEDURES Final Result * (ABNORMAL) CBC auto differential (08/21/2024 9:26 AM EDT) Only the most recent of2 resultswithin the time period is included. White Blood Count 5.3 4.8 - 10.8 X10*3/uL [facility] Red Blood Count 3.63(L) 4.20 - 5.50 X10*6/uL [facility] Hemoglobin 11.5(L) 12.0 - 16.0 g/dl [facility] Hematocrit 35.1(L) 37.0 - 47.0 % [facility] Mean Corpuscular Volume 96.7 80.0 - 98.0 fL [facility] Mean Corpuscular Hemoglobin 31.7 27.0 - 33.0 pg [facility] Mean Corpuscular HGB Conc 32.8 31.0 - 35.0 g/dl [facility] Red Cell Distribution Width 14.1 11.0 - 16.0 % [facility] Platelet Count 290 160 - 400 X10*3/uL [facility] Mean Platelet Volume 8.7(L) 9.4 - 12.3 fL [facility] Neutrophils Percent Auto 52.0 45 - 73 % [facility] Imm Gran Pct Auto 0.2 0.0 - 0.4 % [facility] Lymphocytes Percent Auto 35.9 20 - 40 % [facility] Monocytes Percent Auto 8.9 2 - 11 % [facility] Eosinophils Percent Auto 1.9 0 - 4 % [facility] Basophils Percent Auto 1.1 0 - 2 % [facility] NRBC Pct Auto 0.0 0.0 - 0.2 /100WBC [facility] Neutrophils Absolute Auto 2.7 2.0 - 8.3 x10*3/uL [facility] Imm Gran Abs Auto 0.01 0.00 - 0.03 X10*3/uL [facility] Lymphocytes Absolute Auto 1.9 1.2 - 4.9 X10*3/uL [facility] Monocytes Absolute Auto 0.5 0.1 - 1.2 X10*3/uL [facility] Eosinophils Absolute Auto 0.1 0.0 - 0.4 X10*3/uL [facility] Basophils Absolute Auto 0.1 0.0 - 0.2 X10*3/uL [facility] NRBC Abs Auto 0.000 0.0 - 0.012 X10*3/uL [facility] Blood Venous blood specimen / Unknown 08/21/2024 9:26 AM EDT 08/21/2024 11:13 AM EDT Keshawn Gudino MD LAB BLOOD ORDERABLES Fin al Result Performing Organization Address [facility] de Phone Number [facility] [address] [place] [phone] * Iron And Total Iron Binding Capacity (08/21/2024 9:26 AM EDT) Iron 86 30 - 160 mcg/dL [facility] Total Iron Binding Capacity 234 228 - 428 mcg/dL [facility] Percent Iron Saturation 37 15 - 50 % [facility] Unsaturated Iron Binding 148 ug/dL [facility] Blood Venous blood specimen / Unknown 08/21/2024 9:26 AM EDT 08/21/2024 11:18 AM EDT Keshawn Gudino MD LAB BLOOD ORDERABLES Fin al Result Performing Organization Address [facility] Co de Phone Number [facility] [address] [place] [phone] * (ABNORMAL) Reticulocyte Count (08/21/2024 9:26 AM EDT) Reticulocytes Absolute 0.040 0.026 - 0.095 X10*6/uL [facility] Immature Retic Fraction 9.5 3.0 - 15.9 % [facility] Retic HGB Equivalent 36.0(H) 30.0 - 35.0 pg [facility] Reticulocyte Percent 1.1 0.5 - 1.8 % [facility] Blood Venous blood specimen / Unknown 08/21/2024 9:26 AM EDT 08/21/2024 11:13 AM EDT Keshawn Gudino MD LAB BLOOD ORDERABLES Fin al Result Performing Organization Address [facility]/ZIP Co de Phone Number [facility] [address] [place] [phone] * Transferrin (08/21/2024 9:26 AM EDT) Transferrin 204 188 - 341 mg/dL [facility] Comment:THIS TEST WAS PERFOR MED AT:[facility] [address] [phone] DRAPER MD Blood Venous blood specimen / Unknown 08/21/2024 9:26 AM EDT 08/21/2024 11:13 AM EDT us Keshawn Gudino MD LAB BLOOD ORDERABLES Fin al Result Performing Organization Address [facility] Co de Phone Number [facility] [address] [place] [phone] * Ferritin (08/21/2024 9:26 AM EDT) Ferritin 123 10 - 250 ng/mL [facility] Blood Venous blood specimen / Unknown 08/21/2024 9:26 AM EDT 08/21/2024 11:18 AM EDT Keshawn Gudino MD LAB BLOOD ORDERABLES Fin al Result Performing Organization Address City/[facility]/ZIP Co de Phone Number [facility] [address] [place] [phone] * BI Mammogram Screening Tomosynthesis Bilateral (08/15/2024 11:10 AM EDT) Anatomical Region Laterality Modality Breast Bilateral Mammography 08/15/2024 11:1 0 AM EDT Narrative 08/24/2024 9:34 AM EDT [facility] [place], [place] [address] Mammography Report Signed Patient: Trina Perez MR#: [id number] 2 : 1945 Acct:[id number] Age/Sex: 79 / F ADM Date: 08/15/24 Loc: HO.MAMMO Attending Dr: Keshawn Gudino MD Ordering Physician: Keshawn Gudino MD Results: 1Ne gative Date of Service: 08/15/24 Follow Up: 1 Year From Orig ina Mammogram Procedure(s): MM tomosynthesis screening BI Accession Number(s): [id number] cc: Keshawn Gudino MD EXAMINATION: MM SCREENING DIGITAL BREAST TOMOSYNTHESIS, BILATERAL CLINICAL INFORMATION: Screening. Asymptomatic. COMPARISON: Mammography: Comparison is made with available priors TECHNIQUE: Digital breast mammography with tomosynthesis is performed in both the craniocaudal and mediolateral oblique views along with computer-aided detection (CAD). FINDINGS: There are scattered areas of fibroglandular density (ACR BI-RADS breast composition Category b). There are no significant masses, abnormal calcifications, or other abnormalities. MM/MM tomosynthesis screening BI IMPRESSION: No mammographic evidence of malignancy. ASSESSMENT: BI-RADS BI-RADS 1 - Negative RECOMMENDATION: Routine annual mammography screening. 1 year F/U This examination should not preclude the clinical evaluation of a suspicious palpable abnormality. This patient's information was entered into a reminder system with a target due date for their next mammogram. Electronically signed by: Katharine Kovacs DO 08/24/2024 09:31 AM EDT Dictated By: Katharine Kovacs DO Signed By: <Electronically signed by Katharine Kovacs DO in OV> 08/24/24 0931 DD/ 1110 TD/TT: 08/15/24 1125 Certified Master Safecracker: Procedure Note Donotuseinterpreter, Image - 08/24/2024 [place] [facility] [address] [place] [address] Mammography Report Signed Patient: Charli Perez#: [id number] 2 : 8Acct:[id number] Age/Sex: 79 / FADM Date: 08/15/24 Loc: HO.MAMMO Attending Dr: Keshawn Gudino MD Ordering Physician: Keshawn Gudino MDResults: 1Ne gative Date of Service: 08/15/24Follow Up: 1 Year From Orig inal Mammogram Procedure(s): MM tomosynthesis screening BI Accession Number(s): [id number] cc: Keshawn Gudino MD EXAMINATION: MM SCREENING DIGITAL BREAST TOMOSYNTHESIS, BILATERAL CLINICAL INFORMATION: Screening. Asymptomatic. COMPARISON: Mammography: Comparison is made with available priors TECHNIQUE: Digital breast mammography with tomosynthesis is performed in both the craniocaudal and mediolateral oblique views along with computer-aided detection (CAD). FINDINGS: There are scattered areas of fibroglandular density (ACR BI-RADS breast composition Category b). There are no significant masses, abnormal calcifications, or other abnormalities. MM/MM tomosynthesis screening BI IMPRESSION: No mammographic evidence of malignancy. ASSESSMENT: BI-RADS BI-RADS 1 - Negative RECOMMENDATION: Routine annual mammography screening. 1 year F/U This examination should not preclude the clinical evaluation of a suspicious palpable abnormality. This patient's information was entered into a reminder system with a target due date for their next mammogram. Electronically signed by: Katharine Kovacs DO 08/24/2024 09:31 AM EDT Dictated By: Katharine Kovacs DO Signed By: <Electronically signed by Katharine Kovacs DO in OV> 08/24/24 0931 DD/ 1110 TD/TT: 08/15/24 1125 Certified Master Safecracker: us Keshawn Gudino MD [facility] PROCEDURES Edited Result - Final * Vitamin D, 25-Hydroxy, Total, Immunoassay (08/14/2024 8:58 AM EDT) Vitamin D 25-OH Total 61.6 >30 ng/mL [facility] Comment: Health Based Reference Values*< 20 ng/mL Vxdknnidf21-58 ng/mL Insufficient> 30 ng/mL Sufficient*Lenny REYEZ. N Engl J Med. 2007;357:266-280There is [...] Vitamin D results fromdifferent laboratories and methodologies. Published datademonstrated that results from patients undergoinghemodialysis may show a negative bias when tested withvarious automated 25-OH vitamin D assays when compared toLC-MS/MS.When testing samples from patients whose predominant form ofVitamin D is Vitamin D2, such as patients receiving VitaminD2 supplementation, results that are subtherapeutic shouldbe confirmed with another method such as LC-MS/MS. Blood 08/14/2024 8:58 AM EDT 08/14/2024 11:19 AM EDT Keshawn Gudino MD LAB BLOOD ORDERABLES Fin al Result [facility] [address] [place] [phone] * Vitamin B12/Folate, Serum Panel (08/14/2024 8:58 AM EDT) Vitamin B12 259 200 - 900 pg/mL [facility] Comment:NORMAL 200-900 PG/ML INDETERMINATE 160-199 PG/ML DEFICIENT < 160 PG/ML Folate 16.4 > or = 4.0 ng/mL [facility] Comment:Reference Values:> o r = 4.0 ng/mL< 4.0 ng/mL suggests folate deficiency Methotrexate, aminopterin and folinic acid(leucovorin) are chemotherapeutic agents whose molecularstructures are similar to folate; therefore, the Architectfolate assay cannot be used for patients using these drugs. Blood Venous blood specimen / Unknown 08/14/2024 8:58 AM EDT 08/14/2024 11:19 AM EDT us Keshawn Gudino MD LAB BLOOD ORDERABLES Fin al Result Performing Organization Address City[facility]/ZIP Co de Phone Number [facility] [address] [place] [phone] * TSH with Reflex to Free T4 (08/14/2024 8:58 AM EDT) Pathologist [facility] TSH reflex Free T4 1.18 0.32 - 4.0 uIU/mL [facility] Blood 08/14/2024 8:58 AM EDT 08/14/2024 11:19 AM EDT Keshawn Gudino MD LAB BLOOD ORDERABLES Fin al Result Performing Organization Address [facility] Co de Phone Number [facility] [address] [place] [phone] * (ABNORMAL) Basic Metabolic Panel (08/14/2024 8:58 AM EDT) Pathologist [facility] Sodium 140 135 - 145 mmol/L [facility] Potassium 4.3 3.3 - 5.1 mmol/L [facility] Chloride 105 96 - 108 mmol/L [facility] Carbon Dioxide 29 22 - 29 mmol/L [facility] Anion Gap 10(L) 12 - 20 [facility] Urea Nitrogen (BUN) 22(H) 9 - 16 mg/dL [facility] Creatinine, Serum 0.69 0.5 - 1.4 mg/dL [facility] Estimated Glomerular Filt Rate >60 [facility] Comment:Chronic Kidney Disea se: Estimated GFR < 60 mL/min/[id number] Kidney Disease: Estimated GFR < 15 mL/min/1.73m2 Glucose 87 60 - 115 mg/dL [facility] Calcium 9.1 8.4 - 10.2 mg/dL [facility] Blood Venous blood specimen / Unknown 08/14/2024 8:58 AM EDT 08/14/2024 11:19 AM EDT us Keshawn Gudino MD LAB BLOOD ORDERABLES Fin al Result [facility] [address] [place] [phone] from Last 3 Months Insurance [facility] [employer] Care Teams Electrical Drafter Relationship Specialty Start Date End Date Keshawn Gudino MD [address] [place] [address] PCP - General Internal Medicine 07/31/24
== END 2024-10-21 13:12 | disposition home or self-care (01) ==
LOC: HO.MAMMO 13:11
PROVIDERS: PCP Internal Medicine; Visit Provider Internal Medicine
DX: Z13.820 Encounter for screening for osteoporosis (principal); Z91.89 Other specified personal risk factors, not elsewhere classified; M85.852 Other specified disorders of bone density and structure, left thigh
CPT/HCPCS: 77080

== ENCOUNTER → 2024-10-21 13:30 | Outpatient (BNV) | payer MEDICARE, SELFPAY | PROVIDERS: PCP Internal Medicine; Visit Provider Radiology Diagnostic Radiology | DX: E28.39 Other primary ovarian failure (principal) | CPT/HCPCS: 77080 ==